=== PATIENT | female | born 1950 | race Caucasian/White ===

== ENCOUNTER 2018-08-26 14:03 | Emergency (ER) | payer OTHER ==
[~2018-08-26] VITALS: Ht 165.1 cm; Wt 85.9 kg
[~2018-08-26 14:03] MED LIST: AZIT250T PO; PROM6.25 PO; TRIA15CR55 TOP
[2018-08-26 14:27] VITALS: BP 133/60; PULSE 67; RESP 20; Ht 165.1 cm; Wt 85.9 kg
[2018-08-26] MEDS ORDERED: IPRATROPIUM (NEB) 0.5 MG/2.5 ML AMP NEB STA (16:53)
[2018-08-26] MEDS ORDERED: DEXAMETHASONE 10 MG/ML 1 ML INJ IM STA (16:53)
[2018-08-26] MEDS ORDERED: ALBUTEROL 0.083% (NEB) 2.5 MG/3 ML AMP NEB STA (16:53)
[2018-08-26] MEDS ORDERED: BECL10.6 IH (18:19)
[2018-08-26] MEDS ORDERED: D-ME118S24 PO (18:19)
[2018-08-26] MEDS ORDERED: PRED20TA PO (18:20)
--- NOTE | 2018-08-26 18:25 | ERD ---
ER Documentation Chief Complaint Chief Complaint Complains of SOB Hx of Asthma ROS All systems reviewed and are negative except as per history of present illness. Medications Home Meds Active Scripts Prednisone* (Prednisone*) 20 Mg Tab, 20 MG PO DAILY for asthma exacerbation for 4 Days, #4 TAB Prov:FANNY BAILEY DO 08/26/18 D-Methorphan Hb/P-Epd HCl/Bpm (Cwehagjddq-Qvrbibwxvba-Mx Syr) 118 Ml Syrup, 5 ML PO Q4H PRN for COUGH, #1 BOTTLE Prov:FANNY BAILEY DO 08/26/18 Beclomethasone Dipropionate (Qvar Redihaler (40 MCG)) 10.6 Gm Hfa.aeroba, 10.6 GM IH BID for cough, #1 INH Prov:FANNY BAILEY DO 08/26/18 Promethazine w/Codeine* (Phenergan w/Codeine* Syrup) 5 Ml Syrup, 5 ML PO Q4H PRN for COUGH, #5 ML Prov:THIEN TRIMBLE PA-C 09/15/15 Azithromycin* (Zithromax*) 250 Mg Tablet, 250 MG PO .ZPACK DIRECTED, #6 TAB TAKE 500 MG (2 TABS) THE FIRST DAY THEN 250 MG (1 TAB) DAYS 2-5 Prov:THIEN TRIMBLE PA-C 09/15/15 Reported Medications Triamcinolone Acetonide* (Kenalog*) 0.1%-15GM Cr, 1 APPLIC TOP BID, EA 04/11/14 Allergies Allergies: Coded Allergies: No Known Allergy (Unverified , 09/15/15) PMhx/Soc History of Surgery: No Anesthesia Reaction: No Hx Neurological Disorder: No Hx Respiratory Disorders: Yes (ASTHMA; BRONCHITIS) Hx Cardiac Disorders: No Hx Psychiatric Problems: No Hx Miscellaneous Medical Probl: Yes (GLAUCOMA, ARTHRITIS) Hx Alcohol Use: No Hx Substance Use: No Hx Tobacco Use: No Physical Exam Vitals Vital Signs Date Temp Pulse Resp B/P (MAP) Pulse Ox O2 O2 Flow FiO2 Time Delivery Rate 08/26/18 68 20 98 21 17:14 08/26/18 99.2 67 20 133/60 96 14:27 (84) Physical Exam Const: No acute distress Head: Atraumatic Eyes: Normal Conjunctiva ENT: Normal External Ears, Nose and Mouth. Neck: Full range of motion. No meningismus. Resp: Clear to auscultation bilaterally Cardio: Regular rate and rhythm, no murmurs Abd: Soft, non tender, non distended. Normal bowel sounds Skin: No petechiae or rashes Back: No midline or flank tenderness Ext: No cyanosis, or edema Neur: Awake and alert Psych: Normal Mood and Affect Results 24 hrs Current Medications Medications Dose Sig/Roxi Start Time Status Last (Trade) Ordered Route PRN Stop Time Admin Dose Reason Admin Albuterol 5 mg ONCE STAT 08/26/18 DC 08/26/18 (Proventil NEB 16:53 17:14 0.083% (Neb)) 08/26/18 16:55 Ipratropium 0.5 mg ONCE STAT 08/26/18 DC 08/26/18 [place] NEB 16:53 17:14 (Atrovent 08/26/18 16:55 0.02% (Neb)) 10 mg ONCE STAT 08/26/18 DC 08/26/18 Dexamethasone IM 16:53 17:08 (Decadron) 08/26/18 16:55 Departure Diagnosis: Primary Impression: Asthma with acute exacerbation Asthma severity: mild Asthma persistence: unspecified Qualified Codes: J45.901 - Unspecified asthma with (acute) exacerbation Condition: Fair Patient Instructions: Asthma, Acute (Adult) Referrals: [facility] YOU HAVE RECEIVED A MEDICAL SCREENING EXAM AND THE RESULTS INDICATE THAT YOU DO NOT HAVE A CONDITION THAT REQUIRES URGENT TREATMENT IN THE EMERGENCY DEPARTMENT. FURTHER EVALUATION AND TREATMENT OF YOUR CONDITION CAN WAIT UNTIL YOU ARE SEEN IN YOUR DOCTORS OFFICE WITHIN THE NEXT 1-2 DAYS. IT IS YOUR RESPONSIBILITY TO MAKE AN APPOINTMENT FOR FOLOW-UP CARE. IF YOU HAVE A PRIMARY DOCTOR --you should call your primary doctor and schedule an appointment IF YOU DO NOT HAVE A PRIMARY DOCTOR YOU CAN CALL OUR PHYSICIAN REFERRAL HOTLINE AT IF YOU CAN NOT AFFORD TO SEE A PHYSICIAN YOU CAN CHOSE FROM THE FOLLOWING [facility] [address] [facility] [address] [facility]. [facility] [address] [facility] [address] [facility]. [facility] [address] [facility]. [facility] [address] Additional Instructions: Call your primary care doctor TOMORROW for an appointment during the next 1-2 days.See the doctor sooner or return here if your condition worsens before your appointment time. Llame al doctor MAANA y saw foster JUAN CARLOS PARA DENTRO DE 1-2 BORGES.Dgale a la secretaria que nosotros le instruimos hacer esta juan carlos.Avise o llame si alvarez condicin se empeora antes de la juan carlos. Regresa aqui si peor o no mejor. FANNY BAILEY DO Aug 26, 2018 18:25
== END 2018-08-26 18:30 | disposition home or self-care (01) ==
LOC: FTE 14:03
DX: J45.901 Unspecified asthma with (acute) exacerbation (principal)
CPT/HCPCS: 94664; 96372; 99284; J1100